=== PATIENT | female | born 1960 | race African-American/Black ===

== ENCOUNTER 2017-05-22 19:14 | Emergency (ER) | payer MEDICAID ==
[~2017-05-22] VITALS: Ht 162.6 cm; Wt 95.0 kg
[2017-05-22 19:15] VITALS: BP 155/75
== END 2017-05-23 02:02 | disposition home or self-care (01) ==
LOC: ER 19:27
DX: S80.02XA Contusion of left knee, initial encounter (principal); S80.01XA Contusion of right knee, initial encounter; S60.031A Contusion of right middle finger without damage to nail, initial encounter; M19.90 Unspecified osteoarthritis, unspecified site; V73.6XXA Passenger on bus injured in collision with car, pick-up truck or van in traffic accident, initial encounter; Y93.89 Activity, other specified; Y92.488 Other paved roadways as the place of occurrence of the external cause
CPT/HCPCS: 99283